=== PATIENT | female | born 1995 | race African-American/Black ===

== ENCOUNTER → 2020-03-24 08:44 | Outpatient (CLI) | payer OTHER, SELFPAY ==
[2020-03-24 11:15] LABS: Hemoglobin 11.1 g/dL (12.0-16.0)
[2020-03-24 11:33] LABS: GTT (PREG) 1 Hour PP 50gm Dose 108 mg/dL (76-139)
== END ==
PROVIDERS: PCP Family Medicine; Referring Provider Obstetrics & Gynecology; Visit Provider Obstetrics & Gynecology
DX: Z34.02 Encounter for supervision of normal first pregnancy, second trimester (principal); Z3A.26 26 weeks gestation of pregnancy
CPT/HCPCS: 36415; 82950; 85014; 85018

== ENCOUNTER → 2020-04-14 08:30 | Outpatient (CLI) | payer OTHER, SELFPAY ==
[2020-04-14 10:37] LABS: Hematocrit 31.9 % (36-46); Hemoglobin 10.7 g/dL (12.0-16.0)
[2020-04-14 10:43] LABS: GTT (PREG) 1 Hour PP 50gm Dose 161 mg/dL (76-139)
== END ==
PROVIDERS: PCP Family Medicine; Referring Provider Obstetrics & Gynecology; Visit Provider Obstetrics & Gynecology
DX: Z34.92 Encounter for supervision of normal pregnancy, unspecified, second trimester (principal); Z3A.26 26 weeks gestation of pregnancy
CPT/HCPCS: 36415; 82950; 85014; 85018

== ENCOUNTER → 2020-04-24 07:05 | Outpatient (CLI) | payer OTHER, SELFPAY ==
[2020-04-24 08:33] LABS: Glucose Fasting Gestational 90 mg/dL (76-95)
[2020-04-24 09:13] LABS: Glucose 1 Hour Gest 188 mg/dL (76-180)
[2020-04-24 10:22] LABS: Glucose Tol Interp,Gestational INTERPRETATION
[2020-04-24 11:05] LABS: Glucose 2 Hour Gest 140 mg/dL (76-155)
[2020-04-24 11:30] LABS: Glucose 3 Hour Gest 65 mg/dL (76-140)
== END ==
PROVIDERS: PCP Family Medicine; Referring Provider Obstetrics & Gynecology; Visit Provider Obstetrics & Gynecology
DX: O99.810 Abnormal glucose complicating pregnancy (principal)
CPT/HCPCS: 36415; 82951; 82952

== ENCOUNTER → 2020-05-05 09:34 | Outpatient (CLI) | payer OTHER, SELFPAY ==
--- NOTE | 2020-05-05 09:36 | DI.US.S_ITS ---
PROCEDURE: US OB LIMITED INDICATIONS: PLACENTA LOCATION FOLLOW-UP FINDINGS: This study is limited at the clinician request to assessment of placental location. There is a single living intrauterine gestation in vertex presentation with anterior placenta and no sign of previa or abruption, with amniotic fluid volume of 11.4 cm, normal, and heart rate 155 beats per minute for the fetus. Cervical length is 3 cm, normal. The lower placental margin is well above the cervix, estimated at approximately 6.5 cm above. IMPRESSION: Limited Ob ultrasound requested by the ordering healthcare provider for placental location which is anterior and does not form a previa or show evidence of abruption. Dictated by: Mick Montes M.D. on 05/07/2020 at 12:31 Approved by: Mick Montes M.D. on 05/07/2020 at 12:36
== END ==
PROVIDERS: PCP Family Medicine; Referring Provider Obstetrics & Gynecology; Visit Provider Obstetrics & Gynecology
DX: Z34.83 Encounter for supervision of other normal pregnancy, third trimester (principal); Z3A.28 28 weeks gestation of pregnancy
CPT/HCPCS: 76815

== ENCOUNTER → 2020-06-16 14:49 | Outpatient (CLI) | payer OTHER, SELFPAY ==
[2020-06-17 11:57] LABS: Strep Grp B PCR NEG for Grp B Strep
== END ==
PROVIDERS: PCP Family Medicine; Visit Provider Obstetrics & Gynecology
DX: Z34.03 Encounter for supervision of normal first pregnancy, third trimester (principal); Z3A.36 36 weeks gestation of pregnancy
CPT/HCPCS: 87653

== ENCOUNTER 2020-07-04 04:05 | Inpatient (IN) | payer OTHER, SELFPAY ==
[2020-07-04 05:40] LABS: Add Manual Diff / Slide Review NO; Basophils Absolute Auto 0 /uL (0-100); Basophils Percent Auto 0.2 % (0-2); Eosinophils Absolute Auto 100 /uL (0-450); Eosinophils Percent Auto 0.6 % (2-4); Lymphocytes Absolute Auto 1900 /uL (1100-4500); Lymphocytes Percent Auto 14.9 % (25-40); Mean Corpuscular HGB Conc 33.3 % (30-36); Mean Corpuscular Hemoglobin 30.4 PG (26-34); Mean Corpuscular Volume 91.4 fL (80-100); Monocytes Absolute Auto 700 /uL (0-900); Monocytes Percent Auto 5.8 % (3-14); Neutrophils Absolute Auto 9700 /uL (1500-7000); Neutrophils Percent Auto 78.5 % (50-75); Platelet Count 241 X10^3/uL (150-400); Red Blood Cell Count 3.94 X10^6/uL (4.0-5.2); Red Cell Distribution Width 13.6 % (11.6-14.8); White Blood Cell Count 12.4 X10^3/uL (4.5-11.0)
[2020-07-04 05:55] LABS: COVID19 -Nasal RAPID Negative (Negative)
[2020-07-04 06:08] VITALS: BP 140/72
[2020-07-04] MEDS: OXYTOCIN PREMIX 30 UNIT/500 ML PLAST..BAG IV (08:36)
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
--- NOTE | 2020-07-04 13:42 | PM.OBPNLAB ---
Date/Time Date Patient Seen: 07/04/20 Time Patient Seen: 13:43 Pain Control Pain control: tolerating well (pain level 2) Pelvic Exam Dilation (cm): 3 Effacement (%): 80 station: -1 Amniotic membrane status: Ruptured (forebag AROM for clear fluid) Contractions Monitor mode: External Pitocin rate (mU/min): 9 Contraction frequency (min): 2 Contraction pattern: Regular Contraction intensity: Moderate Status status: Category l Heart Rate Baseline: 135 Monitor Accelerations: Present Monitor Decelerations: Absent Monitor Variability: Moderate Assessment and Plan Assessment: induction ongoing Plan: continuous present management Comments: Patient remains on pitocin, contractions q2-3 though with minimal discomfort. Forebag ruptured as above. No signs of intraamniotic infection, continue current management.
[2020-07-04] MEDS: LACTATED RINGERS 1,000 ML 100 ML IV ×3 (15:57→19:33)
--- NOTE | 2020-07-04 17:27 | PM.OBPNLAB ---
Date/Time Date Patient Seen: 07/04/20 Time Patient Seen: 17:27 Pain Control Pain control: other (moaning through contractions, declines anesthesia) Pelvic Exam Dilation (cm): 5 Effacement (%): 100 station: -1 Amniotic membrane status: Ruptured (clear fluid) Contractions Monitor mode: External Pitocin rate (mU/min): 17 Contraction frequency (min): 2 Contraction pattern: Regular Contraction intensity: Moderate Status status: Category l Heart Rate Baseline: 135 Monitor Accelerations: Present Monitor Decelerations: Absent Monitor Variability: Moderate Assessment and Plan Assessment: induction ongoing Plan: continuous present management
[2020-07-05] MEDS: FENT 2MCG/ML BUPIV 0.125% EPI 200 MCG/100 ML PLAST..BAG 10 MCG EPIDURAL (02:19)
[2020-07-05] MEDS: ONDANSETRON 4 MG/2 ML INJ (02:26)
[2020-07-05] MEDS: LACTATED RINGERS 1,000 ML 100 ML IV (04:15)
--- NOTE | 2020-07-05 06:17 | PM.OBPRVD ---
Events: Labor Induction, Premature Rupture of Membrane and Prolonged Rupture of Membrane Labor & Delivery Delivery date: 07/05/20 Intrapartal events: Prolonged 2nd Stage > 2.5 hours, Extended Tachycardia, Acceleration and Deceleration Induction method: per pitocin protocol Delivery monitor: external FHT and external uterine Route of delivery: L&D Laceration Description: Perineal - 2nd Degree and Labial (bilateral) Delivery repair: vicryl Estimated blood loss (mL): 350 Anesthesia type: Epidural Narrative: This patient presented after PROM at home, confirmed to be ruptured for clear fluid. She had a favorable cervix, and induction was started per Pitocin protocol, after short period of expected management with minimal contractile activity. The patient received an epidural. The patient progressed to fully dilated, and after a 3 hour pushing stage, was delivered of a healthy baby girl, Apgars 9+9, weight 8#6. The 2nd stage was complicated by tachycardia, with moderate variability, no maternal tachycardia or fever. There was no nuchal cord, and the shoulders delivered with ease. The patient underwent delayed cord clamping. A small second-degree perineal laceration with minimal extension to the skin was repaired with the 0 Vicryl in the usual fashion, and bilateral labial lacerations level with but not near the urethra were repaired with interrupted sutures of 3 0 Vicryl. The placenta delivered spontaneously and intact. The patient had global uterine atony, and was administered 30 milliunits of Pitocin in her IV fluids along with 1 dose of 0.2 IM Methergine. There were no other intrapartum or immediate complications. [place] Baby Billie [place]: Infant gender: Female Presentation: vertex position: Right Occiput Anterior Placenta delivery description: Spontaneous cord vessel description: 3 Vessels score (1 min): 9 score (5 min): 9 Plan for aftercare: Routine care.
[2020-07-05] MEDS: METHYLERGONOVINE 0.2 MG/ML VIAL IM (06:18)
[2020-07-05] MEDS: IBUPROFEN 600 MG TABLET PO ×3 (09:16→23:16)
[2020-07-05] MEDS: ACETAMINOPHEN 325 MG TABLET 650 MG PO ×3 (09:16→23:16)
[2020-07-05] MEDS: DOCUSATE 100 MG CAPSULE PO (09:16)
[2020-07-05] MEDS: DERMOPLAST SPRAY 20% 60 ML 1 SPRAY TOP (09:16)
[2020-07-05 23:16] VITALS: TEMP 37.8
[2020-07-06] MEDS: ACETAMINOPHEN 325 MG TABLET 650 MG PO (05:38)
[2020-07-06] MEDS: IBUPROFEN 600 MG TABLET PO (05:38)
--- NOTE | 2020-07-06 08:14 | P.DS_ITS ---
Discharge Providers Provider Date of admission: 07/04/20 04:05 Discharge Date: 07/06/20 Primary care physician: Brian Sykes MD Consults: 07/06/20 06:10 Consult to Factory Supervisor Routine Comment: Discharge provider: Martha Carias MD Summary Hospital Course Date Patient Seen: 07/06/20 Time Patient Seen: 07:50 Procedures: Vaginal delivery Hospital Course: This patient is a 24-year-old now para 1 admitted after PROM at home. After short period of expectant management during which there were no signs of labor, the patient was augmented with Pitocin. She slowly progressed to fully dilated, and after a 3.5 hour 2nd stage, she was delivered of a healthy baby girl, Apgars 9 and 9, weight 8 lb 6 oz. There was no nuchal cord and the shoulders delivered with ease. A secondary perineal laceration and bilateral labial lacerations were repaired with 3-0 Vicryl in the usual fashion. The placenta delivered intact and spontaneously, with a three-vessel cord. The patient had mildly increased lochia and received 1 dose of IM Methergine as well as 30 milliunits of Pitocin as per standard protocol. Baby did well in the immediate period and delayed cord clamping was undertaken, the baby required respiratory support on later on day 1. There were no other intrapartum or immediate complications. Peripartum Data Infant Delivery Method: Natural Vaginal Laceration Description: Perineal - 2nd Degree and Labial Procedures: Normal spontaneous vaginal delivery complications: none [place] Billie [place]: Gender: Female Status at Discharge Cognitive/behavioral status at discharge: oriented Functional status at discharge: independent ambulation Overall status at discharge: patient is back to baseline Time Spent with Patient Time attestation: Total time spent providing and/or coordinating discharge services: Time spent: Greater than 30 minutes Objective Labs Result Diagrams: 07/04/20 05:20 Exam Vital Signs (past 8 hours): 128/83, HR 84, T 97.9F, RR 17 Narrative Exam Narrative: Patient reports feeling well with mild to moderate lochia, ambulating, tolerating p.o., voiding, passing flatus, no headaches, visual changes, chest pain, fevers, chills, trouble breathing, or other complaints. Const General: cooperative, healthy appearing, comfortable and well groomed Other: Resting in chair in nursery with baby. Resp Effort & Inspection: normal respiratory effort Auscultation: clear to auscultation bilaterally Cardio Rate: regular rate Rhythm: regular rhythm GI Inspection: non-distended Palpation: soft and No tender Other: fundus firm, well below u Other: exam deferred as patient in nursery Discharge Plan Discharge Plan Patient Disposition: Home Discharge orders & Medications Prescriptions: New ibuprofen 600 mg tablet 600 mg PO Q8H PRN (Reason: pain) Qty: 30 RF: 0 acetaminophen [Tylenol] 325 mg tablet 650 mg PO Q6H PRN (Reason: pain) Qty: 30 RF: 0 Continued prenat.vits,bette,[id number] Tablet 1 tab PO DAILY RF: 0 ferrous gluconate 324 mg (37.5 mg iron) tablet 324 mg PO DAILY RF: 0 (DME) Double Electric breast Pump and Supplies See Rx Instructions .ROUTE .MEDSUPPLY Qty: 1 RF: 0 Follow up/Referrals: Martha Carias MD [Physician] - 6 Weeks ( visit) Brian Sykes MD [Primary Care Provider] - Diet/Activity/Treatments Diet: Regular Activity: Nothing in the vagina for 6 weeks. Avoid heavy lifting for 6 weeks. If you have increased bleeding, fevers, chills, nausea, vomiting, headaches, visual changes, trouble breathing, or any other symptoms or concerns, call the clinic or come to the emergency room. Skin/Wound/Dressing Care Report to your healthcare provider any signs of infection, such as:: chills, fever, night sweats, increased pain, unusual drainage and unusual redness Visit Report/Discharge Packet Instructions: DI for Labor and Delivery, Vaginal Discharge Data Primary Care Provider: Brian Sykes
== END 2020-07-06 11:30 | disposition home or self-care (01) | DRG 807 ==
PROVIDERS: Admitting Provider Obstetrics & Gynecology; PCP Family Medicine; Referring Provider Obstetrics & Gynecology; Visit Provider Obstetrics & Gynecology
DX: O42.12 Full-term premature rupture of membranes, onset of labor more than 24 hours following rupture (principal); Z37.0 Single live birth; O63.1 Prolonged second stage (of labor); Z3A.38 38 weeks gestation of pregnancy; O70.1 Second degree perineal laceration during delivery; O76 Abnormality in fetal heart rate and rhythm complicating labor and delivery; Z11.59 Encounter for screening for other viral diseases
CPT/HCPCS: 01967; 59050; 59515; 76815; 84112; 85025; 86850; 86900; 86901; 87635; G0379; J2210; J2405; J2590

== ENCOUNTER → 2020-10-15 15:18 | Outpatient (CLI) | payer OTHER, SELFPAY ==
[2020-10-15 16:14] LABS: COVID19 -Nasal RAPID Negative (Negative)
== END ==
PROVIDERS: PCP Family Medicine; Visit Provider Obstetrics & Gynecology
DX: Z01.812 Encounter for preprocedural laboratory examination (principal); Z20.822 Contact with and (suspected) exposure to COVID-19
CPT/HCPCS: 87635

== ENCOUNTER 2020-10-16 08:28 | Day surgery (SDC) | payer OTHER, SELFPAY ==
[2020-10-16] VITALS (7 sets, daily range): BP systolic 112–124; BP diastolic 71–90; PULSE 57–87; RESP 12–16; TEMP 36.5–36.6; O2SAT 98–100; BMI 33.4
--- NOTE | 2020-10-16 | PATH_ITS ---
[facility] Accession Number: [id number] . 01 Material submitted: . PART A: cervix - ANTERIOR LEEP PART B: cervix - POSTERIOR LEEP . 02 Diagnosis: A. Cervix, Anterior LEEP: High-grade squamous intraepithelial neoplasia (ESTEVAN 2), focally present, and abutting one lateral tissue edge; please see comment. No evidence of invasive carcinoma. . B. Cervix, Posterior LEEP: Transformation zone mucosa with no evidence of neoplasia. Please see comment. [facility] 10/21/2020 1612 Local . 02 Comment: A.-B. Margin assessment is suboptimal due to the fragmented specimen. In addition, there is significant artifactual distortion of epithelium due to cautery and/or Lugol's solution. . 02 Electronically signed: . Arianne Maurer MD, Pathologist NPI- [id number] . 01 Gross description: . A. The specimen is received in formalin, labeled anterior LEEP, and consists of multiple francis-pink to francis-white, smooth to wrinkled portions of ectocervix measuring 2.5 x 1.5 x 0.5 cm in aggregate. The margins are inked blue. The specimen is serially sectioned and entirely submitted in cassettes A1-A4. B. The specimen is received in formalin, labeled posterior LEEP, and consists of four irregular, francis-pink fragments of cervix measuring 2.0 x 1.5 x 0.5 cm in aggregate. The margins are inked blue. The specimen is serially sectioned and entirely submitted in cassettes B1-B3. ([id number]) /Jennifer 10/17/2020 1631 Local . 02 Microscopic: . A2. A p16 immunohistochemical stain was performed to characterize cells of interest and is positive for block nuclear and cytoplasmic reactivity consistent with high-grade squamous intraepithelial neoplasia. The control stain showed appropriate reactivity. . B1. A p16 immunohistochemical stain was performed to characterize cells of interest and is negative for block reactivity, which mitigates against an interpretation of high-grade squamous intraepithelial neoplasia. The control stain showed appropriate reactivity. . . * This test was developed and its performance characteristics determined by [facility]. It has not been cleared or approved by the U.S. Food and Drug Administration. The FDA has determined that such clearance or approval is not necessary. This test is used for clinical purposes. It should not be regarded as investigational or for research. . 02 Pathologist provided ICD-10: N87.1 . 02 CPT . 919731, 267323, O80667 Performed at: [facility] [address] [id number] MD Coleman Galindo MD Phone: [phone] Performed at: 02 [facility] [address] [place], [place] [id number] MD Arianne Maurer MD Phone: [phone]
[2020-10-16] MEDS: LACTATED RINGERS 1,000 ML 100 ML IV (09:06)
--- NOTE | 2020-10-16 09:44 | PM.PREOP ---
Pre-operative Note COVID-19 COVID-19 status: Negative Result date/Date tested (Pos, Neg/Pending): 10/15/20 Interval Note History & Physical reviewed/Exam performed by Physician: Yes Changes to H&P: No
--- NOTE | 2020-10-16 10:43 | SUR.OPER ---
Lithotomy on padded OR bed, head on pillow, arms secured on padded arm boards at <90 degrees abduction. Legs secured in padded yellow fins stirrups.
[2020-10-16] MEDS: LIDOCAINE 1% W/EPI 20 ML INJ (10:50)
[2020-10-16] MEDS: FERRIC SUBSULFATE 8 GM SOLUTION 2 ML TOP (10:51)
[2020-10-16] MEDS: POTASSIUM IODIDE/IODINE 473 ML SOLUTION TOP (10:51)
--- NOTE | 2020-10-16 11:13 | P.OP_ITS ---
Procedure & Clinicians Procedure: loop electrocautery excision procedure Same procedure as scheduled: Yes Surgeon: Martha [place] Click Yes if Unassisted: Yes Anesthesia Type: Sedation Operative Notes Findings: Normal vulva and vagina. cervix with IUD strings visible. Specimen(s): other (Anterior and posterior lip of the cervix) Estimated Blood Loss (mL): 5 Procedure in detail: After informed consent was obtained, the patient was taken to the operating room. IV sedation was obtained and she was placed in the dorsal lithotomy position, having voided prior to transfer. A speculum was placed in the patient's vagina. Due to patient's body habitus and size of available coated speculum, the cervix was difficult to visualize. A coated tenaculum was placed on the anterior lip of the cervix and used to bring it into view, and the cervix coated in Lugol solution. The area of decreased Lugol's uptake was completely visualized and consistent with findings on colposcopy. No gross cervical lesions were identified. 10 cc of 1% lidocaine with epinephrine was infiltrated into the cervical stroma in a circumferential fashion. A medium loop device on the Standard cautery settings was use to remove the anterior lip of the cervix, though this was performed in pieces given visualization difficulty and need to manipulate the cervix and vagina with a tenaculum and a 2nd coated instrument. The same procedure was performed on the posterior lip of the cervix, though the specimen was again removed in pieces due to difficulty with visualization of the entire posterior lip at once. The top hat was performed with the smallest loop, and despite the difficulty obtaining the specimen, on final inspection a cone shaped specimen had been removed from the cervix in the proper distribution. The roller ball was used to cauterize the biopsy site edges, and good hemostasis was noted. Monsel's was applied to the biopsy site to ensure hemostasis and for infection prevention. The tenaculum was removed from the anterior lip of the cervix with spontaneous hemostasis. The speculum was removed from the vagina. The patient tolerated procedure well and was taken to the PACU in stable condition. Complications: none Post-operative Condition: stable Disposition: PACU Plan for aftercare: Routine postoperative care.
== END 2020-10-16 12:07 | disposition home or self-care (01) ==
PROVIDERS: PCP Family Medicine; Referring Provider Family Medicine; Visit Provider Obstetrics & Gynecology
PROC: 0UBC7ZZ Excision of Cervix, Via Natural or Artificial Opening (ICD-10-PCS; CPT 57522; principal; 2020-10-16 09:45)
DX: N87.1 Moderate cervical dysplasia (principal); R87.810 Cervical high risk human papillomavirus (HPV) DNA test positive; B97.7 Papillomavirus as the cause of diseases classified elsewhere
CPT/HCPCS: 57522; 81025; A9270; J1100; J1885; J2405; J2704; J3010

== ENCOUNTER → 2022-04-21 15:51 | Outpatient (CLI) | payer OTHER, SELFPAY ==
[2022-04-21 16:23] LABS: COVID19 -Nasal RAPID Negative (Negative)
== END ==
PROVIDERS: Visit Provider Obstetrics & Gynecology
DX: Z01.812 Encounter for preprocedural laboratory examination (principal); Z20.822 Contact with and (suspected) exposure to COVID-19
CPT/HCPCS: 87635

== ENCOUNTER 2022-04-22 08:07 | Day surgery (SDC) | payer OTHER, SELFPAY ==
[2022-04-22] VITALS (8 sets, daily range): BP systolic 115–132; BP diastolic 74–90; PULSE 78–96; RESP 16–17; TEMP 36.1–36.6; O2SAT 99–100; BMI 35.9
--- NOTE | 2022-04-22 | PATH_ITS ---
[facility] Accession Number: [id number] . 01 Material submitted: . fallopian tube - BILATERAL FALLOPIAN TUBES . 01 Clinical history: . LAP [place] SALPINGECTOMY ENCOUNTER FOR STERILIZATION . 01 Diagnosis: Bilateral Fallopian Tubes, Bilateral Salpingectomy: Complete cross-sections of bilateral fimbriated fallopian tube lumen with no significant pathologic alterations. MRV 04/25/2022 1422 Local . 01 Electronically signed: . Dianna Burnette MD, Pathologist NPI- [id number] . 01 Gross description: . Received in formalin labeled with the patient's name and bilateral fallopian tubes consists of two unoriented fimbriated fallopian tubes measuring 7.5 x 0.5 cm and 5.8 x 0.7 cm. The longer fallopian tube has smooth congested serosa with no cystic structures identified. Sectioning reveals an unremarkable stellate lumen. The shorter fallopian tube has smooth congested serosa with no cystic structures and serial sectioning reveals an unremarkable stellate lumen. Corrugator Operator Helper sections are submitted as follows: . A1: Longer fallopian tube to include entire fimbriae and technology sales representative cross-sections. A2: Sanders fallopian tube to include entire fimbriae and technology sales representative cross-sections. ([id number]) /MRV 04/24/2022 1917 Local . 01 Pathologist provided ICD-10: Z30.2 . 01 CPT . 035495 Specimen Comment: A courtesy copy of this report has been sent to [phone] Performed at: 01 [facility] [address] [place] [address] [address], [place], [place] [id number] MD Coleman Galindo MD Phone: [phone]
[2022-04-22] MEDS: LACTATED RINGERS 1,000 ML 42 ML IV (08:50)
--- NOTE | 2022-04-22 09:37 | P.OP.PRE_ITS ---
Pre-operative Note COVID-19 COVID-19 status: Negative Result date/Date tested (Pos, Neg/Pending): 04/21/22 Criteria for continued procedure: Non-surgical alternatives not available or appropriate per current SOC Interval Note History & Physical reviewed/Exam performed by Physician: Yes Changes to H&P: No H&P completed within 30 days and has changed as indicated here:: Patient re quests IUD removal as her strings were severed at the time of her LEEP procedure. Verbal consent obtained.
--- NOTE | 2022-04-22 10:12 | SUR.OPER ---
Lithotomy on padded OR bed, head on pillow, arms secured on padded arm boards at <90 degrees abduction. Legs secured in padded yellow fins stirrups. arms tucked at sides during case
--- NOTE | 2022-04-22 10:19 | SUR.OPER ---
IUD REMOVED PER VERBAL REQUEST OF PATIENT
[2022-04-22] MEDS: BUPIVACAINE 0.5% W/ EPI (PF) 30 ML VIAL INJ (10:22)
--- NOTE | 2022-04-22 11:06 | PM.GYNOP.1 ---
Operative Date/Time/Diagnoses Date of procedure: 04/22/22 Time of procedure: 09:45 Pre-op diagnosis: Request for sterilization IUD in place Post-op diagnosis: same Procedure & Clinicians Procedure: Procedures Operation Date: 04/22/22 09:45 Actual Procedure Side Surgeon p Laparoscopic Salpingectomy, Mirena IUD removal Bilateral Roger Shrestha MD Indications: Torie is a 26-year-old who has requested permanent sterilization by laparoscopic bilateral salpingectomy and removal of her Mirena IUD. She presents today for her scheduled surgery. Surgeon: Roger Shrestha Anesthesia Type: General Operative Notes Findings: Normal pelvis. Appendix and upper abdomen normal to laparoscopic inspection. Closure Type: primary Specimen(s): left tube and right tube Estimated blood loss (mL): 0 Blood products transfused: none Procedure in detail: With the patient under satisfactory general anesthesia in the modified dorsal lithotomy position, the perineum, vagina, and abdomen were prepped and draped for IUD removal and laparoscopic bilateral salpingectomy. A pre-surgical safety time-out was then taken in accordance with [facility] OR protocols. A bivalve speculum was inserted in the vagina and the cervix was visualized. The anterior lip of the cervix was then grasped with a single-tooth tenaculum and a alligator forcep was used to retrieve the IUD from within the uterine cavity. An intact Mirena IUD was removed without difficulty and discarded. The umbilicus was then infiltrated with 0.5% Marcaine with epinephrine and 1 cm vertical incision was made in the inferior aspect of the umbilicus. Veress needle was used to insufflate the abdomen with carbon dioxide and once appropriately insufflated, 5 mm bladeless trocar and sleeve were inserted through the incision. Proper placement of the sleeve was confirmed with laparoscopic visualization and insufflation of the abdomen continued. A 2nd and 3rd 5 mm laparoscopic port were placed in the right and left mid quadrants using a similar technique and using a 3 puncture technique, the abdomen and pelvis were visualized with the findings as noted above. The distal aspect of the left fallopian tube was then grasped with a grasping forceps and using a Power Seal device, fimbria ovarica was coagulated and divided the dissection using the Power Seal continuing across the mesosalpinx to the cornua where the base fallopian tube was coagulated and divided. The left fallopian tube was then removed through one of the ports and submitted pathologic specimen. Attention was then turned to the right adnexa with distal tube grasped with a grasping forcep. The Power Seal device was then used to coagulate fimbria ovarica and the dissection was carried across the mesosalpinx to the cornua where the fallopian tube on the right side was amputated at the cornua following coagulation proximal tube the Power Seal device. Pelvis was inspected and there were no abnormalities noted following bilateral salpingectomy. The pneumoperitoneum was then vented and the ports removed from the abdominal wall. Port incisions were then closed with 4-0 Monocryl using inverted interrupted stitches and skin glue was applied. Appropriate dressings were then applied, patient was awakened, and transferred to the PACU for a period of observation after having tolerated the procedure well. Complications: none Post-operative Condition: stable Disposition: PACU Plan for aftercare: Routine postoperative care with follow-up plan for 2 weeks postop.
[2022-04-22] MEDS: OXYCODONE IR 5 MG TABLET PO (11:09)
[2022-04-22] MEDS: hydrOXYzine pamoate 25 MG CAPSULE PO (11:09)
[2022-04-22] MEDS: ONDANSETRON 4 MG/2 ML INJ IV (11:10)
[2022-04-22] MEDS: KETOROLAC 30 MG/ML VIAL IV (11:28)
--- NOTE | 2022-04-22 11:42 | SUR.PHASEII ---
Pt A&Ox4, reports pain as tolerable, denies nausea, VSS, dressing c/d/i, and ready to transfer to phase 2. Report given to NOA Pike using SBAR with time allowed for questions. Spouse updated. Will transfer care now.
== END 2022-04-22 12:09 | disposition home or self-care (01) ==
PROVIDERS: Referring Provider Obstetrics & Gynecology; Visit Provider Obstetrics & Gynecology
PROC: 0UT74ZZ Resection of Bilateral Fallopian Tubes, Percutaneous Endoscopic Approach (ICD-10-PCS; CPT 58661; principal; 2022-04-22 09:45)
DX: Z30.2 Encounter for sterilization (principal); Z30.432 Encounter for removal of intrauterine contraceptive device
CPT/HCPCS: 58661; 58301; 81025; J1100; J1885; J2250; J2405; J2704; J3010